=== PATIENT | female | born 1960 | race African-American/Black ===

== ENCOUNTER 2021-08-07 07:07 | Inpatient (IN) ==
[2021-08-07] MEDS ORDERED: NITROGLYCERIN SL 0.4 MG TABLET SL PRN (09:00)
[2021-08-07] MEDS ORDERED: CLORAZEPATE 3.75 MG TABLET PO PRN (09:00)
[2021-08-07] MEDS ORDERED: MORPHINE 2 MG/1 ML SYRINGE IV PRN (09:41)
[2021-08-07] MEDS ORDERED: GLUCAGON 1 MG VIAL IM PRN (09:41)
[2021-08-07] MEDS ORDERED: DEXTROSE 50% 25 GM/50 ML VIAL IV PRN (09:41)
[2021-08-07 16:19] LABS: Basophils % 0.4 % (0.0-0.8); Eosinophils # 0.1 10*3/uL (0.0-0.87); Eosinophils % 1.2 % (0.00-10.9); Hemoglobin 11.2 GM/DL (12.0-16.0); Immature Granulocytes % 0.3 %; Immature Granulocytes Absolute 0.02 #; Mean Corpuscular HGB Conc 33.9 GM/DL (32-36); Mean Platelet Volume 10.3 FL (9.6-12.0); Monocytes % 7.6 % (1.7-12.7); Neutrophils % 49.5 % (38.7-73.9); Platelet Count 214 T/CUMM (130-400); Red Blood Count 3.75 MC/CUMM (3.8-5.5); Red Cell Distribution Width 12.3 % (9.3-17.3); White Blood Count 7.4 T/CUMM (4-12)
[2021-08-07 16:47] LABS: Albumin 3.7 G/DL (3.4-5.0); Bilirubin,Total 0.5 MG/DL (0.20-1.00); Calcium 9.1 MG/DL (8.5-10.1); Osmolality,Calculated 281.1 MOS/KG (273-304); Potassium 3.1 MMOL/L (3.5-5.1); Total Protein 7.8 G/DL (6.4-8.2)
[2021-08-07] MEDS: CHLORHEXIDINE 0.12% ORAL RINSE 60 ML BOTTLE SWISH/SPIT SCH ×2 (18:13→21:28)
[2021-08-07] MEDS: SODIUM CHLORIDE 0.9% 1,000 ML IV SCH (18:14)
[2021-08-07] MEDS: CHLORHEXIDINE 4% SOLN 118 ML BOTTLE TOP SCH ×3 (18:24→21:28)
[2021-08-08] MEDS ORDERED: VANCOMYCIN 1,000 MG VIAL ONE (04:13)
[2021-08-08] MEDS ORDERED: PAPAVERINE 60 MG/2 ML VIAL ONE (04:13)
[2021-08-08] MEDS ORDERED: VANCOMYCIN 500 MG VIAL ONE (04:13)
[2021-08-08] MEDS ORDERED: CEFUROXIME INJ 1,500 MG in SODIUM CHLORIDE 0.9% 100 ML IV ONE (05:00)
[2021-08-08] MEDS ORDERED: VECURONIUM 10 MG VIAL IV ONE ×3 (05:46→08:54)
[2021-08-08] MEDS ORDERED: MIDAZOLAM 10 MG/2 ML VIAL ONE ×4 (05:46→08:54)
[2021-08-08] MEDS ORDERED: CALCIUM CHLORIDE 1,000 MG/10 ML VIAL IV ONE ×2 (05:46→10:23)
[2021-08-08] MEDS ORDERED: PHENYLEPHRINE 10 MG/1 ML VIAL IV ONE (05:47)
[2021-08-08] MEDS ORDERED: SEVOFLURANE 1 UNIT/15 MINUTE INH ONE (06:03)
[2021-08-08] MEDS ORDERED: LIDOCAINE 2% 5 ML VIAL ONE ×2 (06:03→10:13)
[2021-08-08] MEDS ORDERED: AMINOCAPROIC ACID 5,000 MG/20 ML VIAL ONE (06:03)
[2021-08-08] MEDS ORDERED: MINERAL OIL/PETROLATUM OPH OINT 3.5 GM TUBE ONE (06:03)
[2021-08-08] MEDS ORDERED: SUFentanil 250 MCG/5 ML AMP ONE ×2 (06:10→07:38)
[2021-08-08] MEDS ORDERED: FAMOTIDINE 20 MG/2 ML VIAL IV ONE (06:15)
[2021-08-08] MEDS ORDERED: DIAZEPAM 5 MG TABLET PO ONE (06:30)
[2021-08-08] MEDS ORDERED: PANTOPRAZOLE 40 MG TABLET PO ONE (06:30)
[2021-08-08] MEDS ORDERED: NITROPRUSSIDE 50 MG/2 ML VIAL ONE (07:14)
[2021-08-08] MEDS ORDERED: SODIUM BICARBONATE 50 MEQ/50 ML VIAL IV ONE ×2 (07:14→10:13)
[2021-08-08] MEDS ORDERED: POTASSIUM CHLORIDE RIDER 20 MEQ/100 ML PREMIX IV ONE (07:14)
[2021-08-08] MEDS ORDERED: PHENYLEPHRINE DRIP 40 MG/250 ML PREMIX IV ONE (07:15)
[2021-08-08] MEDS ORDERED: CALCIUM CHLORIDE 1,000 MG/10 ML SYRINGE IV ONE (07:15)
[2021-08-08] MEDS ORDERED: ALBUMIN 5% 12.5 GM/250 ML VIAL IV ONE ×2 (07:15)
[2021-08-08 07:42] LABS: ABG Base Excess -0.5 MMOL/L (-2.5-2.5); ABG Oxygen Saturation 99.6 % (95-100); ABG PCO2 54.3 MM HG (35-48); ABG PH 7.302 (7.35-7.45); ABG TCO2 24.1 MMOL/L (23-27); Glucose Heart Surgery 106 MG/DL (74-106); Hematocrit Heart Surgery 36.1 PERCENT (37-47); Hemoglobin Heart Surgery 11.7 G/DL (12.0-16.0); Ionized Calcium Arterial 1.21 MMOL/L (1.21-1.46); PCO2 Patient Temp Arterial 54.3 MMHG; PH Patient Temp Arterial 7.302; Patient Temperature 37 CELCIUS; Sodium Heart/CVR 144 MMOL/L (135-145)
[2021-08-08 07:48] LABS: Bilirubin,Urine Negative (Negative); Blood, Urine Negative (Negative); Glucose,Urine (UA) Negative (Negative); Ketones,Urine Negative (Negative); Nitrite,Urine Negative (Negative); Protein,Urine Negative; RBC,Urine 1 /HPF (0-4); Squamous Epithelial Cell,Urine Occasional /HPF (0-10); Urine Appearance CLEAR (Clear); Urine Color Straw (Yellow); Urine Specific Gravity 1.005 (1.001-1.035); Urine Urobilinogen < 2.0 EU/DL (0.2-1.0)
[2021-08-08] MEDS ORDERED: diphenhydrAMINE 50 MG/1 ML VIAL ONE (08:54)
[2021-08-08 09:05] LABS: Hematocrit Heart Surgery 19.6 PERCENT (37-47); Hemoglobin Heart Surgery 6.2 G/DL (12.0-16.0); PCO2 Patient Temp Venous 33.1 MM HG; PH Patient Temp Venous 7.485; PO2 Patient Temp Venous 37.4 MM HG; Potassium Heart/CVR 4.2 MMOL/L (3.5-5.1); VBG Base Excess 1.9 MEQ/L (0-4); VBG Oxygen Saturation 83.2 %; VBG PCO2 38.3 MMHG (41-51); VBG PH 7.441; VBG PO2 45.9 MMHG (17-40); VBG Total CO2 24.9 MMOL/L
[2021-08-08 09:39] LABS: Hemoglobin Heart Surgery 6.7 G/DL (12.0-16.0); PCO2 Patient Temp Venous 34.2 MM HG; PH Patient Temp Venous 7.467; PO2 Patient Temp Venous 34.6 MM HG; Potassium Heart/CVR 3.9 MMOL/L (3.5-5.1); VBG Base Excess 1.2 MEQ/L (0-4); VBG HCO3 25.3 MEQ/L (24-28); VBG Oxygen Saturation 72.8 %; VBG PCO2 35.9 MMHG (41-51); VBG PH 7.452; VBG PO2 37.2 MMHG (17-40); VBG Total CO2 23.9 MMOL/L
[2021-08-08] MEDS ORDERED: MAGNESIUM SULFATE 5 GM/10 ML VIAL IV ONE (10:10)
[2021-08-08] MEDS ORDERED: ALBUMIN 25% 25 GM/100 ML VIAL IV ONE (10:10)
[2021-08-08 10:11] LABS: ABG Base Excess -0.8 MMOL/L (-2.5-2.5); ABG HCO3 23.2 MMOL/L (20-26); ABG Oxygen Saturation 98.7 % (95-100); ABG PCO2 35.7 MM HG (35-48); ABG PH 7.431 (7.35-7.45); ABG PO2 484.8 MM HG (80-95); ABG TCO2 24.3 MMOL/L (23-27); Glucose Heart Surgery 208 MG/DL (74-106); Hemoglobin Heart Surgery 9.9 G/DL (12.0-16.0); PCO2 Patient Temp Arterial 35.7 MMHG; PH Patient Temp Arterial 7.431; PO2 Patient Temp Arterial 484.8 MM HG; Patient Temperature 37 CELCIUS; Sodium Heart/CVR 135 MMOL/L (135-145)
[2021-08-08] MEDS ORDERED: FUROSEMIDE 20 MG/2 ML VIAL ONE (10:11)
[2021-08-08] MEDS ORDERED: DEXTROSE 5% KCL 20 MEQ 20 MEQ/1,000 ML BAG IV ONE (10:11)
[2021-08-08] MEDS ORDERED: HEPARIN 10,000 UNIT/10 ML VIAL ONE (10:11)
[2021-08-08] MEDS ORDERED: methylPREDNISolone SOD SUC 1,000 MG/8 ML VIAL ONE (10:13)
[2021-08-08] MEDS ORDERED: MANNITOL 12.5 GM/50 ML VIAL IV ONE (10:13)
[2021-08-08] MEDS ORDERED: PROTAMINE SULFATE 250 MG/25 ML VIAL IV ONE (10:13)
[2021-08-08] MEDS ORDERED: LACTATED RINGERS 1,000 ML IV ONE ×2 (10:23→11:00)
[2021-08-08] MEDS ORDERED: SODIUM CHLORIDE 0.9% 1,000 ML IV ONE (10:23)
[2021-08-08] MEDS ORDERED: HEPARIN/NACL 0.9% 2 UNITS/ML 1,000 UNIT/500 ML BAG IV ONE (10:23)
[2021-08-08] MEDS ORDERED: ACETAMINOPHEN 650 MG SUPP RECTAL PRN (11:06)
[2021-08-08] MEDS ORDERED: MORPHINE 10 MG/1 ML VIAL IV PRN (11:06)
[2021-08-08] MEDS ORDERED: LACTATED RINGERS 250 ML IV PRN (11:06)
[2021-08-08] MEDS ORDERED: VECURONIUM 10 MG VIAL IV PRN ×2 (11:06)
[2021-08-08] MEDS ORDERED: INSULIN REGULAR 100 UNIT/ML IV ONE (11:06)
[2021-08-08] MEDS ORDERED: ONDANSETRON 4 MG/2 ML VIAL IV PRN (11:06)
[2021-08-08] MEDS ORDERED: CALCIUM CHLORIDE 1,000 MG/10 ML SYRINGE IV PRN (11:06)
[2021-08-08] MEDS ORDERED: MAGNESIUM SULF RIDER 2 GM/50 ML PREMIX IV PRN (11:06)
[2021-08-08] MEDS ORDERED: DEXTROSE 50% 25 GM/50 ML VIAL IV PRN ×2 (11:06)
[2021-08-08] MEDS ORDERED: MIDAZOLAM 10 MG/2 ML VIAL IV PRN (11:06)
[2021-08-08] MEDS ORDERED: INSULIN REGULAR 100 UNIT/ML IV PRN (11:06)
[2021-08-08] MEDS ORDERED: MAGNESIUM SULF RIDER 4 GM/100 ML PREMIX IV PRN (11:06)
[2021-08-08] MEDS ORDERED: NITROPRUSSIDE 100 MG in DEXTROSE 5% 250 ML IV PRN (11:06)
[2021-08-08] MEDS ORDERED: MIDAZOLAM 2 MG/2 ML VIAL IV PRN (11:06)
[2021-08-08] MEDS ORDERED: PHENYLEPHRINE DRIP 40 MG/250 ML PREMIX IV PRN (11:06)
[2021-08-08 11:22] LABS: ABG Base Excess 0.5 MMOL/L (-2.5-2.5); ABG HCO3 24.9 MMOL/L (20-26); ABG Oxygen Saturation 99.2 % (95-100); ABG PCO2 33.8 MM HG (35-48); ABG PH 7.457 (7.35-7.45); ABG TCO2 21.1 MMOL/L (23-27); Glucose Heart Surgery 166 MG/DL (74-106); Hematocrit Heart Surgery 35.6 PERCENT (37-47); Hemoglobin Heart Surgery 11.5 G/DL (12.0-16.0); Potassium Heart/CVR 3.7 MMOL/L (3.5-5.1)
[2021-08-08 11:24] LABS: Basophils % 0.2 % (0.0-0.8); Eosinophils # 0.1 10*3/uL (0.0-0.87); Eosinophils % 1.1 % (0.00-10.9); Hematocrit 33.1 VOL% (35.7-47.0); Hemoglobin 11.2 GM/DL (12.0-16.0); Immature Granulocytes % 0.5 %; Immature Granulocytes Absolute 0.05 #; Lymphocytes # 1.7 10*3/uL (1.4-4.0); Lymphocytes % 15.6 % (21.3-54.2); Mean Corpuscular HGB Conc 33.8 GM/DL (32-36); Mean Corpuscular Volume 87.8 FL (87-102); Mean Platelet Volume 10.4 FL (9.6-12.0); Monocytes % 5.8 % (1.7-12.7); Neutrophils % 76.8 % (38.7-73.9); Platelet Count 178 T/CUMM (130-400); Red Blood Count 3.77 MC/CUMM (3.8-5.5); Red Cell Distribution Width 12.4 % (9.3-17.3); White Blood Count 10.8 T/CUMM (4-12)
[2021-08-08] MEDS ORDERED: SODIUM CHLORIDE 0.45% 1,000 ML IV SCH ×2 (11:30)
[2021-08-08] MEDS ORDERED: INSULIN REGULAR DRIP 100 ML IV SCH (11:30)
[2021-08-08] MEDS: POTASSIUM CHLORIDE RIDER 20 MEQ/100 ML PREMIX IV PRN ×4 (11:38→22:29)
[2021-08-08 11:44] LABS: CKMB % 5.3 %
[2021-08-08 11:46] LABS: High Sensitive Troponin I* 2836.3 ng/L (0-54)
[2021-08-08 11:50] LABS: INR 1.1; PT Patient Result 12.1 SECS (10.5-12.0); Partial Thromboplastin Time 26.3 SECS (23.8-32.1)
[2021-08-08] MEDS: POTASSIUM CHLORIDE RIDER 10 MEQ/100 ML PREMIX IV PRN ×2 (12:12→15:10)
[2021-08-08 12:13] LABS: Albumin 3.9 G/DL (3.4-5.0); Bilirubin,Total 1.3 MG/DL (0.20-1.00); Calcium 11.5 MG/DL (8.5-10.1); Osmolality,Calculated 279.4 MOS/KG (273-304); Potassium 3.7 MMOL/L (3.5-5.1); Total Protein 7.3 G/DL (6.4-8.2)
[2021-08-08] MEDS: KETOROLAC 30 MG/1 ML VIAL IV SCH ×3 (12:13→23:36)
[2021-08-08] MEDS: SODIUM CHLORIDE 0.9% 1,000 ML IV SCH (12:24)
[2021-08-08] MEDS: CHLORHEXIDINE 0.12% ORAL RINSE 60 ML BOTTLE SWISH/SPIT SCH (12:24)
[2021-08-08] MEDS: ALBUMIN 5% 12.5 GM/250 ML VIAL IV PRN ×4 (12:32→21:07)
[2021-08-08] MEDS ORDERED: NITROGLYCERIN DRIP 50 MG/250 ML BOTTLE IV ONE (14:02)
[2021-08-08] MEDS ORDERED: NITROGLYCERIN DRIP 50 MG/250 ML BOTTLE IV PRN (14:05)
[2021-08-08 14:34] LABS: ABG Base Excess 0.8 MMOL/L (-2.5-2.5); ABG HCO3 25.1 MMOL/L (20-26); ABG Oxygen Saturation 99.6 % (95-100); ABG PCO2 33.1 MM HG (35-48); ABG PH 7.468 (7.35-7.45); ABG TCO2 21.6 MMOL/L (23-27); Glucose Heart Surgery 172 MG/DL (74-106); Hematocrit Heart Surgery 32.1 PERCENT (37-47); Hemoglobin Heart Surgery 10.4 G/DL (12.0-16.0); Potassium Heart/CVR 3.6 MMOL/L (3.5-5.1)
[2021-08-08 19:28] LABS: ABG Base Excess -3.5 MMOL/L (-2.5-2.5); ABG HCO3 21.5 MMOL/L (20-26); ABG Oxygen Saturation 99.5 % (95-100); ABG PCO2 35.5 MM HG (35-48); ABG PH 7.381 (7.35-7.45); ABG TCO2 19.2 MMOL/L (23-27); Glucose Heart Surgery 253 MG/DL (74-106); Hematocrit Heart Surgery 30.4 PERCENT (37-47); Hemoglobin Heart Surgery 9.8 G/DL (12.0-16.0); Potassium Heart/CVR 3.4 MMOL/L (3.5-5.1)
[2021-08-08] MEDS ORDERED: CEFUROXIME INJ 1,500 MG in SODIUM CHLORIDE 0.9% 100 ML IV SCH (19:30)
[2021-08-08 19:51] LABS: CKMB % 5.3 %; High Sensitive Troponin I* 1884.1 ng/L (0-54)
[2021-08-08] MEDS ORDERED: CHLORHEXIDINE 0.12% ORAL RINSE 60 ML BOTTLE SWISH/SPIT SCH (21:00)
[2021-08-08 22:17] LABS: ABG Base Excess -4.7 MMOL/L (-2.5-2.5); ABG HCO3 20.5 MMOL/L (20-26); ABG Oxygen Saturation 99.3 % (95-100); ABG PCO2 38.4 MM HG (35-48); ABG PH 7.339 (7.35-7.45); ABG TCO2 19.1 MMOL/L (23-27); Glucose Heart Surgery 192 MG/DL (74-106); Hematocrit Heart Surgery 28.4 PERCENT (37-47); Hemoglobin Heart Surgery 9.2 G/DL (12.0-16.0)
[2021-08-08] MEDS ORDERED: FUROSEMIDE 40 MG/4 ML VIAL IV ONE (23:29)
[2021-08-09 00:36] LABS: ABG HCO3 22.8 MMOL/L (20-26); ABG Oxygen Saturation 99.6 % (95-100); ABG PCO2 32.6 MM HG (35-48); ABG PH 7.432 (7.35-7.45); Glucose Heart Surgery 154 MG/DL (74-106); Potassium Heart/CVR 4.3 MMOL/L (3.5-5.1)
[2021-08-09 02:33] LABS: ABG Base Excess -0.7 MMOL/L (-2.5-2.5); ABG HCO3 23.9 MMOL/L (20-26); ABG Oxygen Saturation 99.4 % (95-100); ABG PCO2 37.5 MM HG (35-48); ABG PH 7.409 (7.35-7.45); ABG TCO2 21.5 MMOL/L (23-27); Glucose Heart Surgery 121 MG/DL (74-106); Hematocrit Heart Surgery 31.5 PERCENT (37-47); Hemoglobin Heart Surgery 10.2 G/DL (12.0-16.0); Potassium Heart/CVR 4.1 MMOL/L (3.5-5.1)
[2021-08-09 03:39] LABS: ABG Base Excess -0.4 MMOL/L (-2.5-2.5); ABG HCO3 24.1 MMOL/L (20-26); ABG Oxygen Saturation 99.3 % (95-100); ABG PCO2 40.5 MM HG (35-48); ABG PH 7.389 (7.35-7.45); ABG TCO2 22.2 MMOL/L (23-27); Basophils % 0.1 % (0.0-0.8); Glucose Heart Surgery 107 MG/DL (74-106); Hematocrit 29.7 VOL% (35.7-47.0); Hematocrit Heart Surgery 31.4 PERCENT (37-47); Hemoglobin Heart Surgery 10.2 G/DL (12.0-16.0); Immature Granulocytes % 0.5 %; Immature Granulocytes Absolute 0.07 #; Lymphocytes # 1.3 10*3/uL (1.4-4.0); Lymphocytes % 9.5 % (21.3-54.2); Mean Corpuscular HGB Conc 33.7 GM/DL (32-36); Mean Corpuscular Volume 88.7 FL (87-102); Monocytes % 8.4 % (1.7-12.7); Neutrophils % 81.5 % (38.7-73.9); Platelet Count 148 T/CUMM (130-400); Red Blood Count 3.35 MC/CUMM (3.8-5.5); Red Cell Distribution Width 13.4 % (9.3-17.3); White Blood Count 14.1 T/CUMM (4-12)
[2021-08-09 03:56] LABS: Albumin 4.5 G/DL (3.4-5.0); Bilirubin,Direct 0.19 MG/DL (0.0-0.20); Bilirubin,Total 0.8 MG/DL (0.20-1.00); Calcium 9.7 MG/DL (8.5-10.1); Osmolality,Calculated 286.8 MOS/KG (273-304); Potassium 3.9 MMOL/L (3.5-5.1); Total Protein 7.2 G/DL (6.4-8.2)
[2021-08-09 03:58] LABS: CKMB % 5.6 %
[2021-08-09 04:05] LABS: High Sensitive Troponin I* 3745.8 ng/L (0-54)
[2021-08-09 05:14] LABS: ABG HCO3 24.4 MMOL/L (20-26); ABG Oxygen Saturation 99.3 % (95-100); ABG PCO2 42.4 MM HG (35-48); ABG TCO2 22.9 MMOL/L (23-27); Glucose Heart Surgery 123 MG/DL (74-106); Hematocrit Heart Surgery 30.3 PERCENT (37-47); Hemoglobin Heart Surgery 9.8 G/DL (12.0-16.0); Potassium Heart/CVR 4.3 MMOL/L (3.5-5.1)
[2021-08-09] MEDS: KETOROLAC 30 MG/1 ML VIAL IV SCH ×4 (05:17→18:16)
[2021-08-09] MEDS ORDERED: ONDANSETRON 4 MG/2 ML VIAL IV PRN (06:50)
[2021-08-09] MEDS ORDERED: ALUMINUM/MAGNES/SIMETH MAX STR 30 ML UDCUP PO PRN (06:50)
[2021-08-09] MEDS ORDERED: MAGNESIUM SULF RIDER 4 GM/100 ML PREMIX IV PRN (06:50)
[2021-08-09] MEDS ORDERED: ACETAMINOPHEN 325 MG TABLET PO PRN (06:50)
[2021-08-09] MEDS ORDERED: ZALEPLON 5 MG CAPSULE PO PRN (06:50)
[2021-08-09] MEDS ORDERED: DEXTROSE 50% 25 GM/50 ML VIAL IV PRN ×2 (06:50)
[2021-08-09] MEDS ORDERED: GLUCAGON 1 MG VIAL IM PRN ×2 (06:50)
[2021-08-09] MEDS ORDERED: MAGNESIUM SULF RIDER 2 GM/50 ML PREMIX IV PRN (06:50)
[2021-08-09] MEDS: SODIUM CHLOR 0.45% KCL 20 MEQ 20 MEQ/1,000 ML BAG IV SCH (07:39)
[2021-08-09] MEDS: LOSARTAN 50 MG TABLET PO SCH (08:09)
[2021-08-09] MEDS: ATORVASTATIN 20 MG TABLET PO SCH (08:09)
[2021-08-09] MEDS: METOPROLOL SUCCINATE XL 25 MG TABLET PO SCH (08:09)
[2021-08-09] MEDS: CHLORHEXIDINE 0.12% ORAL RINSE 60 ML BOTTLE SWISH/SPIT SCH ×2 (08:09→20:21)
[2021-08-09] MEDS: ASPIRIN CHEW 81 MG TABLET PO SCH (08:09)
[2021-08-09] MEDS: DOCUSATE SODIUM 100 MG CAPSULE PO SCH (08:10)
[2021-08-09] MEDS: ISOSORBIDE MONONITRATE 30 MG TABLET PO SCH (08:10)
[2021-08-09] MEDS: FERROUS SULFATE 325 MG TABLET PO SCH (08:10)
[2021-08-09] MEDS: PANTOPRAZOLE 40 MG TABLET PO SCH (08:10)
[2021-08-09] MEDS: CEFUROXIME INJ 1,500 MG in SODIUM CHLORIDE 0.9% 100 ML IV SCH ×2 (08:22→20:20)
[2021-08-09] MEDS: oxyCODONE/ACETAMINOPHEN 5-325 MG TABLET PO PRN (09:57)
[2021-08-10] MEDS: KETOROLAC 30 MG/1 ML VIAL IV SCH ×4 (01:38→18:38)
[2021-08-10 05:17] LABS: Basophils % 0.2 % (0.0-0.8); Hematocrit 29.8 VOL% (35.7-47.0); Immature Granulocytes % 0.6 %; Immature Granulocytes Absolute 0.11 #; Lymphocytes % 10.9 % (21.3-54.2); Mean Corpuscular HGB Conc 33.6 GM/DL (32-36); Mean Corpuscular Volume 90.9 FL (87-102); Mean Platelet Volume 11.8 FL (9.6-12.0); Monocytes % 7.6 % (1.7-12.7); Neutrophils % 80.7 % (38.7-73.9); Platelet Count 138 T/CUMM (130-400); Red Blood Count 3.28 MC/CUMM (3.8-5.5); Red Cell Distribution Width 13.3 % (9.3-17.3); White Blood Count 18.6 T/CUMM (4-12)
[2021-08-10 05:42] LABS: Albumin 3.5 G/DL (3.4-5.0); Bilirubin,Direct 0.19 MG/DL (0.0-0.20); Bilirubin,Indirect 0.3 MG/DL (0.0-1.0); Bilirubin,Total 0.5 MG/DL (0.20-1.00); CKMB % 1.8 %; Calcium 8.7 MG/DL (8.5-10.1); High Sensitive Troponin I* 1976.8 ng/L (0-54); Osmolality,Calculated 284.4 MOS/KG (273-304); Potassium 4.1 MMOL/L (3.5-5.1); Total Protein 6.5 G/DL (6.4-8.2)
[2021-08-10] MEDS ORDERED: FUROSEMIDE 40 MG/4 ML VIAL IV ONE (06:00)
[2021-08-10] MEDS: SODIUM CHLOR 0.45% KCL 20 MEQ 20 MEQ/1,000 ML BAG IV SCH (06:22)
[2021-08-10] MEDS: DOCUSATE SODIUM 100 MG CAPSULE PO SCH (09:32)
[2021-08-10] MEDS: METOPROLOL SUCCINATE XL 25 MG TABLET PO SCH (09:33)
[2021-08-10] MEDS: ATORVASTATIN 20 MG TABLET PO SCH (09:33)
[2021-08-10] MEDS: ASPIRIN CHEW 81 MG TABLET PO SCH (09:33)
[2021-08-10] MEDS: PANTOPRAZOLE 40 MG TABLET PO SCH (09:33)
[2021-08-10] MEDS: FERROUS SULFATE 325 MG TABLET PO SCH (09:33)
[2021-08-10] MEDS: LOSARTAN 50 MG TABLET PO SCH (09:34)
[2021-08-10] MEDS: ISOSORBIDE MONONITRATE 30 MG TABLET PO SCH (09:37)
[2021-08-10] MEDS: CHLORHEXIDINE 0.12% ORAL RINSE 60 ML BOTTLE SWISH/SPIT SCH ×2 (09:37→21:20)
[2021-08-10] MEDS: oxyCODONE/ACETAMINOPHEN 5-325 MG TABLET PO PRN (22:38)
[2021-08-11] MEDS: KETOROLAC 30 MG/1 ML VIAL IV SCH ×4 (02:28→19:12)
[2021-08-11 05:44] LABS: Basophils % 0.2 % (0.0-0.8); Eosinophils % 0.3 % (0.00-10.9); Hematocrit 30.3 VOL% (35.7-47.0); Hemoglobin 9.9 GM/DL (12.0-16.0); Immature Granulocytes % 0.4 %; Immature Granulocytes Absolute 0.05 #; Lymphocytes # 4.3 10*3/uL (1.4-4.0); Lymphocytes % 33.7 % (21.3-54.2); Mean Corpuscular HGB Conc 32.7 GM/DL (32-36); Mean Corpuscular Volume 92.1 FL (87-102); Mean Platelet Volume 11.5 FL (9.6-12.0); Monocytes % 8.1 % (1.7-12.7); Neutrophils % 57.3 % (38.7-73.9); Platelet Count 149 T/CUMM (130-400); Red Blood Count 3.29 MC/CUMM (3.8-5.5); Red Cell Distribution Width 13.3 % (9.3-17.3); White Blood Count 12.7 T/CUMM (4-12)
[2021-08-11 06:10] LABS: Alanine Aminotransferase 16 U/L (13-56); Albumin 3.1 G/DL (3.4-5.0); Alkaline Phosphatase 30 U/L (45-117); Aspartate Amino Transferase 15 U/L (0-37); Bilirubin,Indirect 1.3 MG/DL (0.0-1.0); Blood Urea Nitrogen 20 MG/DL (7-18); Calcium 8.7 MG/DL (8.5-10.1); Carbon Dioxide 30 MMOL/L (21-32); Estimated Glom Filtration Rate 115 ML/MIN; Glucose 88 MG/DL (74-106); Osmolality,Calculated 280.4 MOS/KG (273-304); Potassium 3.4 MMOL/L (3.5-5.1); Sodium 140 MMOL/L (136-145); Total Protein 6.3 G/DL (6.4-8.2)
[2021-08-11] MEDS: ISOSORBIDE MONONITRATE 30 MG TABLET PO SCH (09:37)
[2021-08-11] MEDS: ATORVASTATIN 20 MG TABLET PO SCH (09:37)
[2021-08-11] MEDS: FERROUS SULFATE 325 MG TABLET PO SCH (09:37)
[2021-08-11] MEDS: DOCUSATE SODIUM 100 MG CAPSULE PO SCH (09:37)
[2021-08-11] MEDS: ASPIRIN CHEW 81 MG TABLET PO SCH (09:37)
[2021-08-11] MEDS: LOSARTAN 50 MG TABLET PO SCH (09:37)
[2021-08-11] MEDS: METOPROLOL SUCCINATE XL 25 MG TABLET PO SCH (09:37)
[2021-08-11] MEDS: PANTOPRAZOLE 40 MG TABLET PO SCH (09:37)
[2021-08-11] MEDS: oxyCODONE/ACETAMINOPHEN 5-325 MG TABLET PO PRN ×2 (09:38→16:52)
[2021-08-11] MEDS: CHLORHEXIDINE 0.12% ORAL RINSE 60 ML BOTTLE SWISH/SPIT SCH ×2 (09:45→20:49)
[2021-08-11] MEDS: MAGNESIUM HYDROXIDE SUSP 30 ML UDCUP PO PRN (16:51)
[2021-08-12] MEDS: KETOROLAC 30 MG/1 ML VIAL IV SCH (00:41)
[2021-08-12] MEDS: oxyCODONE/ACETAMINOPHEN 5-325 MG TABLET PO PRN ×3 (02:56→21:25)
[2021-08-12] MEDS: POTASSIUM CHLORIDE 20 MEQ TABLET PO PRN (09:47)
[2021-08-12] MEDS: PANTOPRAZOLE 40 MG TABLET PO SCH (09:49)
[2021-08-12] MEDS: MAGNESIUM HYDROXIDE SUSP 30 ML UDCUP PO PRN (09:49)
[2021-08-12] MEDS: LOSARTAN 50 MG TABLET PO SCH (09:49)
[2021-08-12] MEDS: METOPROLOL SUCCINATE XL 25 MG TABLET PO SCH (09:49)
[2021-08-12] MEDS: ASPIRIN CHEW 81 MG TABLET PO SCH (09:49)
[2021-08-12] MEDS: FERROUS SULFATE 325 MG TABLET PO SCH (09:49)
[2021-08-12] MEDS: DOCUSATE SODIUM 100 MG CAPSULE PO SCH (09:49)
[2021-08-12] MEDS: ISOSORBIDE MONONITRATE 30 MG TABLET PO SCH (09:49)
[2021-08-12] MEDS: ATORVASTATIN 20 MG TABLET PO SCH (09:49)
[2021-08-12] MEDS: CHLORHEXIDINE 0.12% ORAL RINSE 60 ML BOTTLE SWISH/SPIT SCH ×2 (09:49→21:19)
[2021-08-13 05:57] LABS: Basophils % 0.2 % (0.0-0.8); Eosinophils # 0.2 10*3/uL (0.0-0.87); Eosinophils % 2.1 % (0.00-10.9); Immature Granulocytes % 0.2 %; Immature Granulocytes Absolute 0.02 #; Lymphocytes # 3.4 10*3/uL (1.4-4.0); Lymphocytes % 33.9 % (21.3-54.2); Mean Corpuscular HGB Conc 33.3 GM/DL (32-36); Mean Corpuscular Volume 91.2 FL (87-102); Mean Platelet Volume 10.7 FL (9.6-12.0); Neutrophils % 55.6 % (38.7-73.9); Platelet Count 207 T/CUMM (130-400); Red Blood Count 3.29 MC/CUMM (3.8-5.5); White Blood Count 9.9 T/CUMM (4-12)
[2021-08-13 06:17] LABS: Alanine Aminotransferase 21 U/L (13-56); Alkaline Phosphatase 36 U/L (45-117); Aspartate Amino Transferase 13 U/L (0-37); Bilirubin,Indirect 0.5 MG/DL (0.0-1.0); Blood Urea Nitrogen 10 MG/DL (7-18); Calcium 9.2 MG/DL (8.5-10.1); Carbon Dioxide 30 MMOL/L (21-32); Estimated Glom Filtration Rate 113 ML/MIN; Glucose 94 MG/DL (74-106); Osmolality,Calculated 277.4 MOS/KG (273-304); Potassium 3.9 MMOL/L (3.5-5.1); Sodium 140 MMOL/L (136-145); Total Protein 6.6 G/DL (6.4-8.2)
[2021-08-13] MEDS: ASPIRIN CHEW 81 MG TABLET PO SCH (08:40)
[2021-08-13] MEDS: DOCUSATE SODIUM 100 MG CAPSULE PO SCH (08:41)
[2021-08-13] MEDS: LOSARTAN 50 MG TABLET PO SCH (08:41)
[2021-08-13] MEDS: FERROUS SULFATE 325 MG TABLET PO SCH (08:42)
[2021-08-13] MEDS: ISOSORBIDE MONONITRATE 30 MG TABLET PO SCH (08:43)
[2021-08-13] MEDS: ATORVASTATIN 20 MG TABLET PO SCH (08:43)
[2021-08-13] MEDS: PANTOPRAZOLE 40 MG TABLET PO SCH (08:44)
[2021-08-13] MEDS: METOPROLOL SUCCINATE XL 25 MG TABLET PO SCH (08:44)
[2021-08-13] MEDS: CHLORHEXIDINE 0.12% ORAL RINSE 60 ML BOTTLE SWISH/SPIT SCH ×2 (08:45→20:57)
[2021-08-13] MEDS: POTASSIUM CHLORIDE 20 MEQ TABLET PO PRN ×2 (09:37→10:44)
[2021-08-13] MEDS ORDERED: LACTULOSE 20 GM/30 ML UDCUP PO PRN (14:11)
[2021-08-13] MEDS: oxyCODONE/ACETAMINOPHEN 5-325 MG TABLET PO PRN (19:00)
[2021-08-14 05:39] LABS: Basophils % 0.2 % (0.0-0.8); Eosinophils # 0.2 10*3/uL (0.0-0.87); Eosinophils % 1.8 % (0.00-10.9); Hematocrit 32.2 VOL% (35.7-47.0); Hemoglobin 10.9 GM/DL (12.0-16.0); Immature Granulocytes % 0.3 %; Immature Granulocytes Absolute 0.04 #; Mean Corpuscular HGB Conc 33.9 GM/DL (32-36); Mean Corpuscular Volume 91.2 FL (87-102); Mean Platelet Volume 10.7 FL (9.6-12.0); Monocytes % 7.5 % (1.7-12.7); Neutrophils % 65.2 % (38.7-73.9); Platelet Count 231 T/CUMM (130-400); Red Blood Count 3.53 MC/CUMM (3.8-5.5); Red Cell Distribution Width 12.8 % (9.3-17.3)
[2021-08-14 06:00] LABS: Alanine Aminotransferase 21 U/L (13-56); Albumin 3.3 G/DL (3.4-5.0); Alkaline Phosphatase 38 U/L (45-117); Aspartate Amino Transferase 12 U/L (0-37); Bilirubin,Indirect 0.8 MG/DL (0.0-1.0); Blood Urea Nitrogen 8 MG/DL (7-18); Calcium 9.3 MG/DL (8.5-10.1); Carbon Dioxide 28 MMOL/L (21-32); Estimated Glom Filtration Rate 112 ML/MIN; Glucose 89 MG/DL (74-106); Osmolality,Calculated 269.8 MOS/KG (273-304); Potassium 3.8 MMOL/L (3.5-5.1); Sodium 137 MMOL/L (136-145)
[2021-08-14] MEDS: CHLORHEXIDINE 0.12% ORAL RINSE 60 ML BOTTLE SWISH/SPIT SCH (08:05)
[2021-08-14] MEDS: METOPROLOL SUCCINATE XL 25 MG TABLET PO SCH (08:06)
[2021-08-14] MEDS: DOCUSATE SODIUM 100 MG CAPSULE PO SCH (08:06)
[2021-08-14] MEDS: FERROUS SULFATE 325 MG TABLET PO SCH (08:06)
[2021-08-14] MEDS: PANTOPRAZOLE 40 MG TABLET PO SCH (08:06)
[2021-08-14] MEDS: ISOSORBIDE MONONITRATE 30 MG TABLET PO SCH (08:06)
[2021-08-14] MEDS: LOSARTAN 50 MG TABLET PO SCH (08:06)
[2021-08-14] MEDS: ASPIRIN CHEW 81 MG TABLET PO SCH (08:06)
[2021-08-14] MEDS: ATORVASTATIN 20 MG TABLET PO SCH (08:06)
[2021-08-14] MEDS: oxyCODONE/ACETAMINOPHEN 5-325 MG TABLET PO PRN (09:28)
[2021-08-14 09:31] VITALS: BP 112/66
== END 2021-08-14 12:24 | disposition home health service (06) | DRG 236 ==
LOC: N.2W 15:16 → N.CVR 08-08 10:25 → N.TELES 08-09 09:27